=== PATIENT | male | born 1960 | race Native Hawaiian/Other Pacific Islander ===

== ENCOUNTER 2018-01-23 13:03 | Emergency (ER) | payer OTHER ==
[~2018-01-23] VITALS: Ht 190.5 cm; Wt 100.7 kg
[2018-01-23 15:14] VITALS: BP 132/78; TEMP 98.9
== END 2018-01-23 15:14 | disposition home or self-care (01) ==
LOC: ED 13:03
DX: S80.01XA Contusion of right knee, initial encounter (principal); W01.0XXA Fall on same level from slipping, tripping and stumbling without subsequent striking against object, initial encounter; Z91.81 History of falling; Y93.89 Activity, other specified; Y92.512 Supermarket, store or market as the place of occurrence of the external cause; E03.8 Other specified hypothyroidism
CPT/HCPCS: 99282

== ENCOUNTER 2020-01-03 13:16 | Outpatient (CLI) | payer OTHER | END 2020-01-03 19:23 | disposition home or self-care (01) | LOC: RAD 13:16 | DX: M25.561 Pain in right knee (principal) ==

== ENCOUNTER 2020-03-14 10:14 | Outpatient (CLI) | payer OTHER | END 2020-03-14 23:32 | disposition home or self-care (01) | LOC: MRI 10:14 | DX: M25.561 Pain in right knee (principal) ==

== ENCOUNTER 2020-06-13 18:03 | Outpatient (CLI) | payer OTHER | END 2020-06-13 21:07 | disposition home or self-care (01) | LOC: LAB 18:03 | PROVIDERS: ATTEND Orthopaedic Surgery | DX: M25.561 Pain in right knee (principal) | CPT/HCPCS: 87070; 87205 ==

== ENCOUNTER 2020-08-27 16:18 | Emergency (ER) | payer OTHER ==
[~2020-08-27] VITALS: Ht 190.5 cm; Wt 100.7 kg
[2020-08-27 16:31] VITALS: BP 185/114; TEMP 98.2
== END 2020-08-27 17:00 | disposition home or self-care (01) ==
LOC: ED 16:18
DX: D17.1 Benign lipomatous neoplasm of skin and subcutaneous tissue of trunk (principal)
CPT/HCPCS: 99281